=== PATIENT | female | born 1950 | race Caucasian/White ===

== ENCOUNTER 2017-07-25 15:26 | Emergency (ER) | payer MEDICARE ==
--- NOTE | 2017-07-25 16:39 | UC ---
Laceration HPI - HPI Summary HPI Summary: 67 y/o female presents to the urgent care c/o RT elbow laceration s/p falling while putting some curtains at 1100 am. Pt reports she lost balance and hit her elbow against a picture frame glass and cut her elbow. Bleeding stopped with pressure. she went to her PCP and was advised to come here. Pt doesn't recall when was the last tetanus shot. Pt states the frame was cut in 2 large pieces. Pt denies pain at this moment, fever, SOB, chest pain, abdominal pain, N/V/D - History Of Current Complaint Chief Complaint: UCLaceration Stated Complaint: ARM LACERATION Time Seen by Provider: 07/25/17 16:37 Hx Obtained From: Patient Laceration Location: Arm - lateral side of RT elbow Mechanism Of Injury: Sharp Trauma Onset/Duration: Sudden Onset, Lasting Hours - 4hrs, Still Present Severity: Moderate Pain Intensity: 0 Pain Scale Used: 0-10 Numeric Aggravating Factors: Movement Related History: Dominant Hand Right - Allergies/Home Medications Allergies/Adverse Reactions: Allergies Allergy/AdvReac Type Severity Reaction Status Date / Time Penicillins Allergy Mild very sick Verified 12/05/16 15:14 per patient PMH/Surg Hx/FS Hx/Imm Hx Previously Healthy: Yes Endocrine History: Dyslipidemia Cardiovascular History: Hypertension - Surgical History Surgical History: None - Family History Known Family History: Positive: Cardiac Disease, Hypertension, Diabetes - Social History Occupation: Retired Lives: With Family Alcohol Use: Rare Substance Use Type: None Smoking Status (MU): Never Smoked Tobacco Review of Systems Constitutional: Negative Skin: Other - laceration of lateral side of RT elbow ENT: Negative Respiratory: Negative Cardiovascular: Negative Gastrointestinal: Negative Genitourinary: Negative Motor: Negative Neurovascular: Negative Musculoskeletal: Negative Neurological: Negative Psychological: Negative Is Patient Immunocompromised?: No All Other Systems Reviewed And Are Negative: Yes Physical Exam Triage Information Reviewed: Yes Vital Signs: Initial Vital Signs Temp 97.6 F 07/25/17 15:37 Pulse 64 07/25/17 15:37 Resp 18 07/25/17 15:37 BP 128/67 07/25/17 15:37 Pulse Ox 100 07/25/17 15:37 - Additional Comments Vital Signs Reviewed: Yes General: well developed, well nourished female sitting in the examining table w/ o any apparent distress Eye Exam: Normal Eyes: Positive: Conjunctiva Clear - PERRLA, EOMI, fundi grossly normal ENT: Positive: Normal ENT inspection, Hearing grossly normal, Pharynx normal, TMs normal Neck: Positive: Supple, Nontender, No Lymphadenopathy Respiratory: Positive: Chest non-tender, Lungs clear, Normal breath sounds, No respiratory distress Cardiovascular: Positive: RRR, No Murmur, Pulses Normal, Brisk Capillary Refill Abdomen Description: Positive: Nontender, No Organomegaly, Soft. Negative: CVA Tenderness (R), CVA Tenderness (L) Bowel Sounds: Positive: Present Musculoskeletal: Positive: Strength Intact, ROM Intact, No Edema Neurological: Positive: Alert, Muscle Tone Normal Psychological Exam: Normal Skin: Positive:Lateral side of RT elbow near the lateral epyicondyle with a linear superficial laceration about 2.5cm in size, bleeding, no foreign body observed. mild tenderness to palpation, mild ecchymosis around elbow. FROM of RT arm, sensation intact, capillary refill brixk, and pulses WNL. Laceration Repair - Laceration Repair 1 Description: Linear Laceration Size After Repair: Length (cm) - 2.5cm Modified For Repair: No Type Injection: Local Anesthesia Used: 2.0% Lido - 4ml Additive Used (in ml): Epi Cleansing Completed Via Routine Prep: Yes Irrigation With Pressure Irrigation Device: Yes Closure Material: Sutures - 7 sutures Closure Method: Single Layer Suture Of: Skin Suture Type: Nylon - 5.0 Laceration Course/Dx - Course/Dx Course Of Treatment: 67 y/o female presents to the urgent care c/o RT elbow laceration s/p falling while putting some curtains at 1100 am. Pt reports she lost balance and hit her elbow against a picture frame glass and cut her elbow. Bleeding stopped with pressure. she went to her PCP and was advised to come here. Pt doesn't recall when was the last tetanus shot. Pt states the frame was cut in 2 large pieces. Pt denies pain at this moment, fever, SOB, chest pain, abdominal pain, N/V/D. Hx obtained. Pt with a RT elbow superficial laceration about 2.5 cm in size in the lateral side on examination. RT elbow X-ray ordered , impression: No fracture or foreign body noted. LACERATION PROCEDURE NOTE: . Copious irrigation was done with saline by the nurse Simons and the wound explored. There was no FB or deep structure injury noted. FROM of left forearm. procedure was explained and consent obtained, Timeout performed. The wound was anesthetized with 4 mL of 2% lido/epi with good anesthesia. Sterile drape and prep were don. There were 7 sutures with 5.0 nylon type of suture. The length of the wound after closure was 2.5cm. No debridement done. Wound was covered bacitracin with sterile nonadherent dressing. The Pt tolerated the procedure well without adverse effects. Neurovascular intact and FROM. Tdap ordered and applied by nurse. Pt advised to f/u suture removal in 10 days and if any signs of infection develop to immediately return to the urgent care of PCP for further management and treatment. Pt understood and agreed and left the clinic ambulating A&Ox3. - Differential Dx - Laceration/Wound Differental Diagnoses: Abrasion, Fracture, Hematoma, Laceration, Puncture Wound , Tendon Laceration Provider Diagnoses: 1- Lateral side of Rt elbow with a superficial laceration Discharge - Discharge Plan Condition: Stable Disposition: HOME Prescriptions: Bacitracin OINTMENT* 1 applic TOPICAL TID #1 tube Patient Education Materials: Care For Your Stitches (ED), Laceration (ED) Referrals: Pauline Christensen MD [Primary Care Provider] - 1 Week Additional Instructions: 1-Please apply topical antibiotic over the wound. Keep wound clean and dry 3- F/u suture removal in 10 days w/ your PCP or here at the urgent care. 4-Take Ibuprofen or Tylenol PO q6-8hrs prn for pain or swelling. 5- If you develop fever or redness around your finger despite the antibiotic please go to the ER immediately or return to the Urgent care.
[2017-07-25] MEDS ORDERED: Tetan/Diph/Pertus SYR(Tdap)* 0.5 ML SYR(BOOSTRIX) use SYR IM ONE ×2 (16:47→16:50)
[2017-07-25] MEDS ORDERED: Lidocaine 2% W/EPI 1:100,000* 20 ML MDV INJ ONE (17:29)
--- NOTE | 2017-07-25 17:45 | RAD ---
INDICATION: Right elbow laceration COMPARISON: None TECHNIQUE: AP, lateral, and oblique views were obtained. FINDINGS: There is no acute fracture or foreign body. The elbow articular is normally. There is a bandage at the level of the elbow which presumably is compressing the laceration. IMPRESSION: NO FRACTURE OR FOREIGN BODY.
[2017-07-25 17:57] VITALS: BP 133/62
== END 2017-07-25 18:31 | disposition home or self-care (01) ==
LOC: UCEAST 15:26
DX: S51.011A Laceration without foreign body of right elbow, initial encounter (principal); W18.00XA Striking against unspecified object with subsequent fall, initial encounter; Y93.89 Activity, other specified; Y92.009 Unspecified place in unspecified non-institutional (private) residence as the place of occurrence of the external cause; Z23 Encounter for immunization; E78.5 Hyperlipidemia, unspecified; I10 Essential (primary) hypertension; Z88.0 Allergy status to penicillin
CPT/HCPCS: 12001; 90471; 90715; 99212; G0463

== ENCOUNTER 2017-08-08 10:24 | Emergency (ER) | payer MEDICARE ==
[2017-08-08 10:35] VITALS: BP 111/66
--- NOTE | 2017-08-08 10:39 | UC ---
Skin Complaint HPI - History of Current Complaint Chief Complaint: UCLaceration Time Seen by Provider: 08/08/17 10:38 Stated Complaint: SUTURE REMOVAL - Allergy/Home Medications Allergies/Adverse Reactions: Allergies Allergy/AdvReac Type Severity Reaction Status Date / Time Penicillins Allergy Mild very sick Verified 08/08/17 10:35 per patient PMH/Surg Hx/FS Hx/Imm Hx - Surgical History Surgical History: None - Family History Known Family History: Positive: Cardiac Disease, Hypertension, Diabetes - Social History Alcohol Use: None Substance Use Type: None Smoking Status (MU): Never Smoked Tobacco - Immunization History Most Recent Influenza Vaccination: 06/2017 Most Recent Tetanus Shot: 07/25/17 Physical Exam Vital Signs: Initial Vital Signs Temp 97.4 F 08/08/17 10:28 Pulse 57 08/08/17 10:28 Resp 16 08/08/17 10:28 BP 111/66 08/08/17 10:28 Pulse Ox 98 08/08/17 10:28 Discharge - Discharge Plan Referrals: Pauline Christensen MD [Primary Care Provider] -
--- NOTE | 2017-08-08 10:40 | UC ---
Laceration HPI - HPI Summary HPI Summary: Pt presents with 7 interrupted sutures to right elbow in need of removal. They were placed 14 days ago. She has had no issues with the laceration. No fevers, chills, bleeding, discharge, redness, or edema. - History Of Current Complaint Chief Complaint: UCLaceration Stated Complaint: SUTURE REMOVAL Time Seen by Provider: 08/08/17 10:38 Hx Obtained From: Patient Laceration Location: Elbow - Allergies/Home Medications Allergies/Adverse Reactions: Allergies Allergy/AdvReac Type Severity Reaction Status Date / Time Penicillins Allergy Mild very sick Verified 08/08/17 10:35 per patient PMH/Surg Hx/FS Hx/Imm Hx Respiratory History: Asthma Psychological History: Anxiety, Depression - Surgical History Surgical History: None - Family History Known Family History: Positive: Cardiac Disease, Hypertension, Diabetes - Social History Occupation: Retired Lives: With Family Alcohol Use: None Substance Use Type: None Smoking Status (MU): Never Smoked Tobacco - Immunization History Most Recent Influenza Vaccination: 06/2017 Most Recent Tetanus Shot: 07/25/17 Review of Systems Constitutional: Negative Skin: Other - Seven sutures right elbow Respiratory: Negative Cardiovascular: Negative All Other Systems Reviewed And Are Negative: Yes Physical Exam Triage Information Reviewed: Yes Appearance: Well-Appearing, Well-Nourished Vital Signs: Initial Vital Signs Temp 97.4 F 08/08/17 10:28 Pulse 57 08/08/17 10:28 Resp 16 08/08/17 10:28 BP 111/66 08/08/17 10:28 Pulse Ox 98 08/08/17 10:28 Vital Signs Reviewed: Yes Musculoskeletal: Positive: Strength Intact - Right elbow, ROM Intact - Right elbow, No Edema - Right elbow Neurological: Positive: Alert, Other: - Sensations intact C4-T1. Skin: Positive: Other - There is a healed ~1.5cm laceration on the right elbow with seven interrupted sutures placed. Great approximation. No erythema, edema, drainage, or streaking. Laceration Course/Dx - Course/Dx Course Of Treatment: Seven sutures removed from right elbow without difficulty. The distal end of the laceration was mildly oozing blood, but there is no wound dehiscence. Two steri-stripes were applied. Pt tolerated well. - Differential Dx - Laceration/Wound Provider Diagnoses: Suture removal - seven right elbow Discharge - Discharge Plan Condition: Stable Disposition: HOME Patient Education Materials: Stitches Removal (ED) Referrals: Pauline Christensen MD [Primary Care Provider] - Additional Instructions: If you develop a fever, SOB, chest pain, drainage, redness, pain, or swelling, new or worsening symptoms - please call your PCP or go to the ED.
== END 2017-08-08 10:53 | disposition home or self-care (01) ==
LOC: UCEAST 10:24
DX: Z48.02 Encounter for removal of sutures (principal); Z88.0 Allergy status to penicillin; J45.909 Unspecified asthma, uncomplicated

== ENCOUNTER 2017-10-20 11:54 | Emergency (ER) | payer MEDICARE | END 2017-10-20 12:00 | disposition left against medical advice (07) | LOC: UCEAST 11:54 | DX: R42 Dizziness and giddiness (principal); R11.0 Nausea; Z53.21 Procedure and treatment not carried out due to patient leaving prior to being seen by health care provider ==

== ENCOUNTER 2017-10-20 12:13 | Emergency (ER) | payer MEDICARE ==
[2017-10-20 14:11] LABS: ABS Basophils 0.1 10^3/ul (0-0.2); ABS Eosinophils 0 10^3/ul (0-0.6); ABS Monocytes 0.5 10^3/ul (0-0.8); ABS Neutrophils 9.1 10^3/ul (1.5-7.7); ABS Nucleated RBC 0 10^3/ul; Eosinophil % 0.3 % (0-6); Hematocrit 42 % (35-47); Hemoglobin 13.5 g/dl (12.0-16.0); Lymphocyte % 17.1 % (25-47); Mean Corpuscular HGB Conc 33 g/dl (31-36); Mean Corpuscular Hemoglobin 29 pg (27-31); Mean Corpuscular Volume 90 fL (80-97); Mean Platelet Volume 8 um3 (7.4-10.4); Nucleated Red Blood Cells % 0; Platelet Count 277 10^3/ul (150-450); Red Blood Count 4.62 10^6/ul (4.0-5.4); Red Cell Distribution Width 13 % (10.5-15); White Blood Count 11.7 10^3/ul (3.5-10.8)
--- NOTE | 2017-10-20 14:14 | RAD ---
Indication: Dizziness. Single frontal view of the chest performed at 1340 hours was reviewed. No prior study is available for comparison. No mediastinal shift is noted. Heart is of normal size and configuration. Lung golden appear clear. IMPRESSION: NO ACTIVE CARDIOPULMONARY DISEASE IS NOTED.
[2017-10-20 14:22] LABS: INR 0.89 (0.77-1.02)
[2017-10-20 14:27] LABS: EGFR Non-African American 65.4 (>60)
[2017-10-20 14:59] LABS: Urine Appearance Cloudy; Urine Blood Negative (Negative); Urine Color Amber; Urine Ketones Negative (Negative); Urine Protein Negative (Negative); Urine Specific Gravity 1.016 (1.010-1.030); Urine Urobilinogen Negative (Negative)
[2017-10-20 15:41] VITALS: BP 120/64
--- NOTE | 2017-10-20 20:27 | ED ---
Jacob Biggs Stephanie, scribed for Mary Murphy MD on 10/20/17 at 1502 . Dizziness - HPI Summary HPI Summary: The pt is a 67 y/o F presenting to the ED with c/o dizziness and nausea that began yesterday at 08:00. The dizziness is described as room-spinning dizziness. Symptoms include dry cough. The pt denies LE edema. The dizziness began when the pt started moving her head off of the pillow. The pt reports it began after attempting to get out of bed and then spontaneously resolved at 11: 00. The pt reports the symptoms began again this morning. The pt reports a previous similar occurrence one month ago that lasted 2 weeks. The pt reports recent upper respiratory infection. - History Of Current Complaint Chief Complaint: EDDizziness Stated Complaint: NAUSEA Time Seen by Provider: 10/20/17 13:31 Hx Obtained From: Patient Onset/Duration: Resolved Timing: Intermittent Episode Lasting Aggravating Factor(s): Position Change Alleviating Factor(s): Nothing Associated Signs And Symptoms: Positive: Nausea - Allergies/Home Medications Allergies/Adverse Reactions: Allergies Allergy/AdvReac Type Severity Reaction Status Date / Time MS Penicillins [Penicillins] Allergy Mild very sick Verified 08/08/17 10:35 per patient PMH/Surg Hx/FS Hx/Imm Hx Endocrine/Hematology History: Denies: Hx Diabetes Cardiovascular History: Reports: Hx Hypertension Respiratory History: Denies: Hx Asthma GI History: Reports: Other GI Disorders - microscopic colitis Opthamlomology History: Reports: Other Sensory Impairments - dry eyes EENT History: Denies: Hx Deafness - Surgical History Surgery Procedure, Year, and Place: NONE Infectious Disease History: No Infectious Disease History: Denies: Traveled Outside the [place] in Last 30 Days - Family History Known Family History: Positive: Cardiac Disease, Hypertension, Diabetes - Social History Occupation: Employed Full-time Lives: With Family Alcohol Use: None Substance Use Type: Reports: None Smoking Status (MU): Never Smoked Tobacco Review of Systems Negative: Fever Positive: Cough Positive: Nausea Psychological: Other - dizziness All Other Systems Reviewed And Are Negative: Yes Physical Exam - Summary Physical Exam Summary: Appearance: Ill-appearing, moderate pain distress, Well-nourished Skin: Warm, color reflects adequate perfusion Head: Normal Head/Face inspection Eyes: Conjunctiva clear ENT: Normal inspection Neck: Supple, no nodes, no JVD. Respiratory: Lungs clear, Normal breath sounds, no respiratory distress Cardio: RRR, No murmur, pulses normal, brisk capillary refill Abdomen: soft, nontender Bowel sounds: present Musculoskeletal: Strength Intact/ ROM intact. No calf tenderness. No edema. Neuro: Alert, muscle tone normal, facial symmetry, speech normal, sensory/motor intact Psychological: Normal Triage Information Reviewed: Yes Vital Signs On Initial Exam: Initial Vitals Temp Pulse Resp BP Pulse Ox 97.7 F 64 18 139/68 100 10/20/17 12:14 10/20/17 12:14 10/20/17 12:14 10/20/17 12:14 10/20/17 12:14 Vital Signs Reviewed: Yes Diagnostics - Vital Signs Vital Signs Temp Pulse Resp BP Pulse Ox 10/20/17 14:47 57 136/70 10/20/17 14:46 58 20 95 10/20/17 14:44 58 22 97 10/20/17 14:41 60 17 100 10/20/17 14:08 58 19 100 10/20/17 12:14 97.7 F 64 18 139/68 100 - Laboratory Lab Results: Lab Results 10/20/17 10/20/17 10/20/17 Range/Units 14:00 14:00 14:00 WBC (3.5-10.8) 10^3/ul RBC (4.0-5.4) 10^6/ul Hgb (12.0-16.0) g/dl Hct (35-47) % MCV (80-97) fL MCH (27-31) pg MCHC (31-36) g/dl RDW (10.5-15) % Plt Count (150-450) 10^3/ul MPV (7.4-10.4) um3 Neut % (Auto) (38-83) % Lymph % (Auto) (25-47) % [place] % (Auto) (0-7) % Eos % (Auto) (0-6) % Baso % (Auto) (0-2) % Absolute Neuts (auto) (1.5-7.7) 10^3/ul Absolute Lymphs (auto) (1.0-4.8) 10^3/ul Absolute Monos (auto) (0-0.8) 10^3/ul Absolute Eos (auto) (0-0.6) 10^3/ul Absolute Basos (auto) (0-0.2) 10^3/ul Absolute Nucleated RBC 10^3/ul Nucleated RBC % INR (Anticoag Therapy) 0.89 (0.77-1.02) APTT 30.6 (26.0-36.3) seconds Sodium 137 (133-145) mmol/L Potassium 3.6 (3.5-5.0) mmol/L Chloride 98 L (101-111) mmol/L Carbon Dioxide 33 H (22-32) mmol/L Anion Gap 6 (2-11) mmol/L BUN 13 (6-24) mg/dL Creatinine 0.86 (0.51-0.95) mg/dL Est GFR ( Amer) 84.1 (>60) Est GFR (Non-Af Amer) 65.4 (>60) BUN/Creatinine Ratio 15.1 (8-20) Glucose 112 H (70-100) mg/dL Lactic Acid (0.5-2.0) mmol/L Calcium 10.0 (8.6-10.3) mg/dL Magnesium 2.0 (1.9-2.7) mg/dL Total Bilirubin 0.40 (0.2-1.0) mg/dL AST 27 (13-39) U/L ALT 15 (7-52) U/L Alkaline Phosphatase 63 (34-104) U/L Total Creatine Kinase 61 (10-223) U/L Troponin I 0.00 (<0.04) ng/mL C-Reactive Protein 11.28 H (< 5.00) mg/L B-Natriuretic Peptide 296 H ( - 100) pg/mL Total Protein 7.2 (6.4-8.9) g/dL Albumin 4.1 (3.2-5.2) g/dL Globulin 3.1 (2-4) g/dL Albumin/Globulin Ratio 1.3 (1-3) TSH Pending Urine Color Urine Appearance Urine pH (5-9) Ur Specific [place] (1.010-1.030) Urine Protein (Negative) Urine Ketones (Negative) Urine Blood (Negative) Urine Nitrate (Negative) Urine Bilirubin (Negative) Urine Urobilinogen (Negative) Ur Leukocyte Esterase (Negative) Urine WBC (Auto) (Absent) Urine RBC (Auto) (Absent) Ur Squamous Epith Cells (Absent) Urine Bacteria (Absent) Urine Glucose (Negative) Serum Alcohol < 10 (<10) mg/dL 10/20/17 10/20/17 10/20/17 Range/Units 14:00 14:00 14:30 WBC 11.7 H (3.5-10.8) 10^3/ul RBC 4.62 (4.0-5.4) 10^6/ul Hgb 13.5 (12.0-16.0) g/dl Hct 42 (35-47) % MCV 90 (80-97) fL MCH 29 (27-31) pg MCHC 33 (31-36) g/dl RDW 13 (10.5-15) % Plt Count 277 (150-450) 10^3/ul MPV 8 (7.4-10.4) um3 Neut % (Auto) 77.2 (38-83) % Lymph % (Auto) 17.1 L (25-47) % [place] % (Auto) 4.3 (0-7) % Eos % (Auto) 0.3 (0-6) % Baso % (Auto) 1.1 (0-2) % Absolute Neuts (auto) 9.1 H (1.5-7.7) 10^3/ul Absolute Lymphs (auto) 2.0 (1.0-4.8) 10^3/ul Absolute Monos (auto) 0.5 (0-0.8) 10^3/ul Absolute Eos (auto) 0 (0-0.6) 10^3/ul Absolute Basos (auto) 0.1 (0-0.2) 10^3/ul Absolute Nucleated RBC 0 10^3/ul Nucleated RBC % 0 INR (Anticoag Therapy) (0.77-1.02) APTT (26.0-36.3) seconds Sodium (133-145) mmol/L Potassium (3.5-5.0) mmol/L Chloride (101-111) mmol/L Carbon Dioxide (22-32) mmol/L Anion Gap (2-11) mmol/L BUN (6-24) mg/dL Creatinine (0.51-0.95) mg/dL Est GFR ( Amer) (>60) Est GFR (Non-Af Amer) (>60) BUN/Creatinine Ratio (8-20) Glucose (70-100) mg/dL Lactic Acid 1.0 (0.5-2.0) mmol/L Calcium (8.6-10.3) mg/dL Magnesium (1.9-2.7) mg/dL Total Bilirubin (0.2-1.0) mg/dL AST (13-39) U/L ALT (7-52) U/L Alkaline Phosphatase (34-104) U/L Total Creatine Kinase (10-223) U/L Troponin I (<0.04) ng/mL C-Reactive Protein (< 5.00) mg/L B-Natriuretic Peptide ( - 100) pg/mL Total Protein (6.4-8.9) g/dL Albumin (3.2-5.2) g/dL Globulin (2-4) g/dL Albumin/Globulin Ratio (1-3) TSH Urine Color [place] Urine Appearance Cloudy Urine pH 6.0 (5-9) Ur Specific [place] 1.016 (1.010-1.030) Urine Protein Negative (Negative) Urine Ketones Negative (Negative) Urine Blood Negative (Negative) Urine Nitrate Negative (Negative) Urine Bilirubin Negative (Negative) Urine Urobilinogen Negative (Negative) Ur Leukocyte Esterase 3+ H (Negative) Urine WBC (Auto) Trace(0-5/hpf) (Absent) Urine RBC (Auto) Trace(0-2/hpf) (Absent) Ur Squamous Epith Cells Present H (Absent) Urine Bacteria 1+ H (Absent) Urine Glucose Negative (Negative) Serum Alcohol (<10) mg/dL Result Diagrams: 10/20/17 14:00 10/20/17 14:00 Lab Statement: Any lab studies that have been ordered have been reviewed, and results considered in the medical decision making process. - Radiology CXR Xray Interpretation: No Acute Changes Radiology Interpretation Completed By: Radiologist - NO ACTIVE CARDIOPULMONARY DISEASE IS NOTED. - EKG 13:56 Cardiac Rate: Bradycardia EKG Rhythm: Sinus Bradycardia - [address] Segment: Normal Ectopy: None EKG Interpretation: nml AVIVCT, nml QTc, and nml axis. EKG Comparison: Other - No prior to compare Re-Evaluation - Re-Evaluation First Eval Re-Evaluation Time: 14:41 Change: Unchanged - [place] re-eval: BP 121/56, HR 59, O2 100 Dizzy Course/Dx - Diagnoses Provider Diagnoses: Labyrinthitis Discharge - Discharge Plan Condition: Stable Disposition: HOME Patient Education Materials: Labyrinthitis (ED) Referrals: Pauline Christensen MD [Primary Care Provider] - 2 Days Additional Instructions: ED physician advises pt to change positions slowly. RETURN TO ER FOR ANY NEW OR WORSENING SYMPTOMS The documentation as recorded by the Jacob lorenz Stephanie accurately reflects the service I personally performed and the decisions made by Jeffrey hughes Barbara J, MD.
--- NOTE | 2017-10-23 08:58 | ED ---
Progress - Progress Note Progress Note: Patient's preliminary urine culture reveals 10 - 25,000 Escherichia coli. Her complaint at time of visit was dizziness. She was diagnosed with labyrinthitis. No signs or symptoms of infection day of visit. This count is not necessary to treat. Re-Evaluation - Re-Evaluation First Eval Re-Evaluation Time: 14:41 Change: Unchanged - [place] re-eval: BP 121/56, HR 59, O2 100 Course/Dx - Diagnoses Provider Diagnoses: Labyrinthitis
== END 2017-10-20 15:30 | disposition home or self-care (01) ==
LOC: ED 12:13
DX: H83.09 Labyrinthitis, unspecified ear (principal); R42 Dizziness and giddiness; R11.0 Nausea; R05 Cough; I10 Essential (primary) hypertension; Z88.0 Allergy status to penicillin; Z79.899 Other long term (current) drug therapy; R00.1 Bradycardia, unspecified
CPT/HCPCS: 36415; 71045; 80053; 80307; 80320; 81003; 81015; 82550; 83605; 83735; 83880; 84443; 84484; 85025; 85610; 85730; 86140; 87040; 87077; 87086; 87186; 93005; 99282; G0480